=== PATIENT | male | born 1980 | race African-American/Black ===

== ENCOUNTER 2024-06-11 11:21 | Emergency (ER) | payer SELFPAY ==
[2024-06-11 11:29] VITALS: BP 131/84; PULSE 63; RESP 18; TEMP 97.7; BMI 26.9
[2024-06-11] MEDS ORDERED: KETOROLAC TROMETHAMINE 30 MG/1 ML VIAL ONE (12:18)
[2024-06-11] MEDS ORDERED: METHOCARBAMOL 500 MG TABLET ONE (12:18)
[2024-06-11] MEDS: METHOCARBAMOL 500 MG TABLET PO ONE (12:37)
[2024-06-11] MEDS: KETOROLAC TROMETHAMINE 30 MG/1 ML VIAL IM ONE (12:37)
[2024-06-11] MEDS: IBUPROFEN 600 MG TABLET (FP) PO ONE (13:39)
== END 2024-06-11 13:41 | disposition home or self-care (01) ==
LOC: JERFT 11:21
PROC: 3E0133Z Introduction of Anti-inflammatory into Subcutaneous Tissue, Percutaneous Approach (ICD-10-PCS; principal; 2024-06-11)
DX: M62.830 Muscle spasm of back (principal); M54.50 Low back pain, unspecified
CPT/HCPCS: 99284-25